=== PATIENT | male | born 1930 | race Caucasian/White ===

== ENCOUNTER 2018-06-06 07:30 | Observation (INO) | payer OTHER ==
[~2018-06-06] VITALS: Ht 170.2 cm; Wt 82.3 kg
[2018-06-06] VITALS (12 sets, daily range): BP systolic 116–145; BP diastolic 60–78
--- NOTE | ~2018-06-06 | H ---
[address] [address] HISTORY AND PHYSICAL Name: NATIVIDAD SCHUMACHER Room: [address] Jos Carrillo#: [id number] Admission: 06/06/18 Attend Phys: Dennis Soto MD Discharge: 06/07/18 Date of : 31 Report #: [id number] THIS REPORT FOR: //name// Please refer to the History and Physical performed in the physician's office. By: [id number] Records Staff MIKE /STELLA
[~2018-06-06 07:30] MED LIST: AREDS PO; ASPIR 8181 MG PO; ATORVASTATIN CA40 MG PO; CALCIUM 600 +1 EAC1 PO; COZAAR100 MG PO; FISH OIL 1,001000 M2 PO; KLOR-CON 1010 MEQ PO; LASIX 20 MG TAB20 MG PO; NITROGLYCERIN0.4 MG SUBLING; VITAMIN B-12500 MCG PO
[2018-06-06 08:12] LABS: HEMATOCRIT 51.5 % (42.0-52.0); HEMOGLOBIN 17.4 gm/dL (14.0-18.0); MCHC 33.8 g/dL (28.0-37.0); MCV 91.8 fL (80.0-100.0); MPV 7.8 fl. (7.2-11.1); RBC 5.62 mil/uL (4.50-6.00); RDW-CV 13.8 % (10.5-14.5); WBC 9.4 thou/uL (4.0-11.0)
[2018-06-06 08:19] LABS: ANION GAP 6 mmol/L (7-16); BUN 15 mg/dL (7-18); CALCIUM 9.1 mg/dL (8.5-10.1); CHLORIDE 102 mmol/L (98-107); CO2 28 mmol/L (21-32); CREATININE 1.2 mg/dL (0.6-1.3); GLUCOSE 108 mg/dL (70-99); SODIUM 136 mmol/L (136-145)
[2018-06-06 08:21] LABS: INR 1.1
[2018-06-06 08:23] LABS: ALKALINE PHOSPHATASE 69 U/L (46-116); CHOLESTEROL 125 mg/dL (<200); HDL CHOLESTEROL 62 mg/dL (>40); LDL CHOLESTEROL 45 mg/dL (<100); SERUM ASSESSMENT Clear; SGOT 26 U/L (15-37); SGPT 20 U/L (30-65); TOTAL BILIRUBIN 1.5 mg/dL (<0.1-1.0); TOTAL PROTEIN 7.2 g/dL (6.4-8.2); TRIGLYCERIDE 91 mg/dL (<150); VLDL 18 mg/dL (<40)
--- NOTE | 2018-06-06 13:04 | EKG ---
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: : 1930 Requested By: Dennis Soto Order Number: [id number] Reading MD: Dennis Soto Measurements Intervals [place] Rate: 58 P: 43 NH: 258 QRS: -21 QRSD: 96 T: -4 QT: 442 QTc: 435 Interpretive Statements Sinus rhythm Prolonged [place] interval Borderline left axis deviation Borderline T abnormalities, inferior leads No previous ECG available for comparison Electronically Signed On 06-06-2018 13:04:14 CDT by Dennis Soto [email or web address] <ELECTRONICALLY SIGNED> By: Dennis Soto MD, [facility] 06/06/18 1304 1230 1230 Dennis Soto MD, [facility] /EPI
--- NOTE | 2018-06-06 14:11 | CARD ---
[address] [address] CARDIAC CATH REPORT Name: NATIVIDAD SCHUMACHER Room: [address] Jos Carrillo#: [id number] Admission: 06/06/18 Attend Phys: Dennis Soto MD Discharge: Date of : 31 Report #: [id number] THIS REPORT FOR: //name// APPROVED REPORT Study performed: 06/06/2018 07:56:49 Patient Details Patient Status: Out-Patient Room #: The patient is a 87 year-old male Event Personnel Dennis Soto Director Software Development, Grace Neri RN Extruder Operator Multiple, Susie Sheldon Monitor, Cristo Wyatt (R) Scrub, Olinda Nails RTR Scrub, Greg Beck Inbound Telemarketer Procedures Performed Art Access - R radial artery , Left Heart CatheterizationArt Access - R femoral artery* , Selective Right and Left Coronary AngiographyLeft Heart Cath w/LT VGram [id number] [facility] GRICEL Place w/wo Plasty Single LAD 116819 Indication Dyspnea, Positive stress test Risk Factors Hypercholesterolemia, Hypertension Admission/Lab Medications/Medications given during procedure Aspirin, Platelet Aff. Inhib., Angiomax bolus and infusion Procedure Narrative The patient was brought electively to the Cardiac Catheterization Laboratory and was prepped and draped in a sterile manner. The right wrist was infiltrated with 2% Lidocaine subcutaneous anesthesia. A Slender Glidesheath sheath was inserted into the . Coronary angiography was performed using coronary diagnostic catheters. The right coronary system was accessed and visualized with a JL4 5mu8XFL 5fr catheter. The left coronary system was accessed and visualized with a JL4 6fr catheter. The left ventricle was accessed and visualized with a DCR: [place] 4.0 5frPC: Angled Pig 5fr catheter. Left ventricular/Aortic Valve gradient assessed via catheter pullback. Left ventriculogram was performed in [place] projection. Pre-demployment femoral angiogram was performed . Closure [place] [address] CARDIAC CATH REPORT Name: NATIVIDAD SCHUMACHER Room: [address]#: [id number] Admission: 06/06/18 Attend Phys: Dennis Soto MD Discharge: Date of : 31 Report #: [id number] 6 Fr Angioseal STS 6Fr. The patient tolerated the procedure well and there were no complications associated with the procedure. Intraoperative Conscious Sedation Sedation start time: 09:40 Case end Time: 11:20 Fentanyl 50 mcg Versed 2 mg Fluoro Time: 27.7 minutes Dose: DAP 027146 cGycm2 3701 mGy Contrast Type and Amount: Omnipaque 280 ml Diagnostic Cath Left Main 0 Percent narrowing LAD 90% tortuous proximal LAD stenosis with 80% mid vessel stenosis Circumflex Nondominant vessel with 90% mid vessel stenosis Right Coronary Large dominant vessel with 40% proximal mid and distal narrowings Left Ventriculography The left ventricle is normal in size with contractility. The left ventricular ejection fraction is estimated to be 55 percent. Left ventricular wall motion abnormalities are present. There is no mitral insufficiency. Mild anterior hypokinesis is noted IVUS Findings NC Trek RX 2.75 X 12 Hemodynamics The aortic pressure is 99/53 mmHg with a mean of mmHg. The left ventricular pressure is 115/2 mmHg with a mean of mmHg. The left ventricular end diastolic pressure is 7 mmHg. There was no gradient across the aortic valve upon pullback. PCI Technique Lesion Percutaneous coronary intervention was performed on the proximal left anterior descending artery segment. The lesion stenosis prior to intervention was 90% with CHANTEL 3 flow. A 6FR XB 3.5 100CM Guide Catheter was used to engage the LCA ostium. A IG: ProwaterFlex 180CM Interventional Guidewire was used to cross the lesion. BALLOON DILATION A Balloon catheter Trek RX 2.5 X 12 was inserted and inflated up to 16.00atm for 10seconds. [place] [address] CARDIAC CATH REPORT Name: NATIVIDAD SCHUMACHER Room: [address] M.RMadhav#: [id number] Admission: 06/06/18 Attend Phys: Dennis Soto MD Discharge: Date of : 31 Report #: [id number] STENT DEPLOYMENT A drug-eluting stent Xience Alpine RX 2.5X23 was inserted and inflated up to 12.00atm for 9seconds. Additional Inflation: 12.00atm for 9seconds. POST STENT DEPLOYMENT BALLOON DILATION A Balloon catheter NC Trek RX 2.75X15 was inserted and inflated up to 15.00atm for 9seconds. Additional Inflation: 14.00atm for 8seconds. Final angiography reveals 10 % stenosis with CHANTEL 3 flow. COMMENTS Marked proximal tortuosity of the LAD BALLOON DILATION A Balloon catheter NC Trek RX 2.75 X 12 was inserted and inflated up to jillian for seconds. PCI Technique Lesion 2 Percutaneous Coronary Intervention was performed on the mid left anterior descending artery segment. The lesion stenosis prior to intervention was 80% with CHANTEL 3 flow. A 6FR XB 3.5 100CM Guide Catheter was used to engage the ostium. A IG: ProwaterFlex 180CM Interventional Guidewire was used to cross the lesion. Balloon Dilation A Balloon catheter Trek RX 2.5 X 12 was inserted and inflated up to 10.00atm for 8seconds. Stent Deployment A drug-eluting stent Xience Alpine RX 2.5X15 was inserted and inflated up to 10.00atm for 7seconds. Additional Inflation: 11.00atm for 8seconds. Final angiography reveals 0 % stenosis with CHANTEL 3 flow. PCI Technique Lesion Percutaneous coronary intervention was performed on the mid left anterior descending artery segment. BALLOON DILATION A Balloon catheter NC Trek RX 2.75 X 12 was inserted and inflated up to 12atm for 5seconds. Additional Inflation: 15atm for 8seconds. [address] [address] CARDIAC CATH REPORT Name: NATIVIDAD SCHUMACHER Room: [address] Jos M.R.#: [id number] Admission: 06/06/18 Attend Phys: Dennis Soto MD Discharge: Date of : 31 Report #: [id number] Conclusion #1 significant coronary artery disease characterized by the following: A 90% tortuous proximal LAD stenosis with 80 percent mid vessel stenosis B nondominant circumflex with 90% mid vessel narrowing C large dominant right coronary artery with 40% proximal mid and distal narrowings #2 low normal global left ventricular systolic function, estimated ejection fraction of 55% with mild anterior hypokinesis #3 normal left-sided hemodynamics study #4 successful percutaneous coronary intervention with deployment of sequential drug-eluting stents at the sites of 90% tortuous proximal LAD stenosis and 80% mid LAD stenosis with 10 and 0% residual narrowings and CHANTEL-3 flow to the distal vessel. Recommendations Cardiac Risk Reduction Program Aggressive Medical Therapy Medications Administered Aspirin (any) Ticagrelor Diagnostic Cath Approved by: Dennis Soto MD Date/Time: 06/06/2018 14:10:16 <ELECTRONICALLY SIGNED> By: Greg Beck MD, [facility] 06/06/18 1411 1411 1411Jotim Beck MD, FACC /INF
--- NOTE | 2018-06-06 15:22 | NUR ---
PT ADMITTED TO ROOM 201 AROUND 1445 S/P CARDIAC CATH. PT WAS ACCESSED THROUGH RT WRIST AND RT GROIN SITE. BOTH SITES ARE C/D/I, NO EVIDENCE OF HEMATOMA. LIMB ALERT TO RUE. PT REMAINS ON BEDREST WITH INSTRUCTED IMMOBILIZATION TO RLE. PT COMPLIANT WITH PLAN OF CARE. IVF INFUSING WITHOUT DIFFICULTY. DAUGHTER AT BEDSIDE. NO OTHER CONCERNS AT THIS TIME. CLWR. WCTM.
[2018-06-07] VITALS: BP 118/52
--- NOTE | 2018-06-07 03:59 | NUR ---
PATIENT RESTED IN BED, NO ACUTE CHANGES. PATIENT DID NOT SHOW SIGNS OF BLEEDING OR DISTRESSS. FALL PRECAUTIONS IN PLACE, BED ALARM ON, CALL LIGHT WITH IN REACH, HOURLY ROUNDING OBSERVED.
[2018-06-07 04:00] VITALS: BP 145/72
[2018-06-07 05:11] LABS: HEMATOCRIT 44.9 % (42.0-52.0); MCH 30.8 pg (26.0-34.0); MCHC 33.7 g/dL (28.0-37.0); MCV 91.2 fL (80.0-100.0); MPV 7.9 fl. (7.2-11.1); RBC 4.92 mil/uL (4.50-6.00); RDW-CV 13.8 % (10.5-14.5); WBC 9.6 thou/uL (4.0-11.0)
[2018-06-07 05:22] LABS: HEMOGLOBIN 15.1 gm/dL (14.0-18.0)
[2018-06-07 05:37] LABS: CALCIUM 8.3 mg/dL (8.5-10.1); POTASSIUM 4.2 mmol/L (3.5-5.1); TOTAL BILIRUBIN 1.6 mg/dL (<0.1-1.0); TOTAL PROTEIN 5.3 g/dL (6.4-8.2); TROPONIN-I LEVEL 0.38 ng/mL (<0.06)
[2018-06-07 07:54] VITALS: BP 140/70
[2018-06-07 08:59] VITALS: BP 140/70
[2018-06-07] MEDS ORDERED: BRILINTA90 MG PO (09:59)
--- NOTE | 2018-06-07 10:55 | NUR ---
ASSUMED CARE OF PT AT 0715. PT REMAINS A&O CALM AND COOPERATIVE. PT VSS ON ROOM AIR AND TRACING SR ON THE MONITOR. PT VERBALIZED UNDERSTANDING OF DC INSTRUVTIONS THAT INCLUDED BUT NOT LIMITED TO, MEDICATION MANAGEMENT, POST CATH ACTIVITY RESTRICTIONS, DIETARY MODIFICATIONS. IV AND CHILD NURSE REMOVED PRIOR TO DISCHARGE. PT TOOK ALL PERSONAL BELONGINGS AND PRESCRIPTIONS AT TIME OF DISCHARGE.
--- NOTE | 2018-06-07 17:23 | EKG ---
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: : 1930 Requested By: Greg Beck Order Number: [id number] Elisabet MD: Greg Beck Measurements Intervals [place] Rate: 65 P: 43 MI: 217 QRS: -5 QRSD: 94 T: 41 QT: 440 QTc: 458 Interpretive Statements Sinus rhythm Borderline prolonged [place] interval Borderline low voltage, extremity leads Compared to ECG 06/06/2018 12:30:46 T-wave abnormality no longer present Electronically Signed On 06-07-2018 17:22:53 CDT by Greg Beck [email or web address] <ELECTRONICALLY SIGNED> By: Greg Beck MD, [facility] 06/07/18 1722 0846 0846 Greg Beck MD, [facility] /EPI
--- NOTE | 2018-06-24 12:10 | D ---
[address] [address] DISCHARGE SUMMARY Name: NATIVIDAD SCHUMACHER Room: [address] Jos Carrillo#: [id number] Admission: 06/06/18 Attend Phys: Dennis Soto MD Discharge: 06/07/18 Date of : 31 Report #: [id number] THIS REPORT FOR: //name// CC: Dennis Jiménez DATE OF SERVICE: 06/07/2018 FINAL DIAGNOSES: 1. Unstable angina. 2. Status post outpatient cardiac catheterization demonstrating a high grade 90% left anterior descending stenosis, which was successfully treated with 2 drug-eluting stents in the proximal and mid portions of his left anterior descending vessel. 3. Residual 80% circumflex stenosis, which will be treated at a later date, secondary to increased dye necessary for his left anterior descending coronary intervention. 4. Low normal left ejection fraction. 5. Treated hyperlipidemia. 6. Hypertension. 7. Ejection fraction 55%. HOSPITAL SUMMARY: The patient had been having outpatient shortness of breath, which we tried to manage medically but he continued to have symptoms, so we brought him in for diagnostic cardiac catheterization. He has a remote history of PCI to his circumflex and right coronary arteries. The right coronary artery stented portion looks good with only minimal disease. There was a very high-grade stenosis in the proximal and mid LAD, which was in the 90% range involved 2 large diagonals, both of which were spared for his coronary intervention. He had anterior hypokinesis on his LV gram. His lipids were surveyed and his LDL was in the 50 range, so we left his atorvastatin dose unchanged. He will be discharged on aspirin and Brilinta and follow up in approximately 1 month for PCI for his 90% nondominant circumflex stenosis. Discharge creatinine is 1.0. Discharge troponin is 0.38. Discharge hemoglobin is 15.1. DISCHARGE MEDICATIONS: Aspirin, Brilinta 90 mg p.o. b.i.d., losartan 100 mg daily, atorvastatin 40 mg daily and furosemide 20 mg p.r.n. with 10 [place] [address] DISCHARGE SUMMARY Name: NATIVIDAD SCHUMACHER Room: [address]#: [id number] Admission: 06/06/18 Attend Phys: Dennis Soto MD Discharge: 06/07/18 Date of : 31 Report #: [id number] FOLLOWUP: He will follow up with nurse practitioner in 4 weeks. <ELECTRONICALLY SIGNED> By: Dennis Soto MD, [facility] 06/24/18 1210 0852 0940Dennis Soto MD, FACC /nt
== END 2018-06-07 11:50 | disposition home or self-care (01) ==
LOC: M.CL 07:30 → M.TBA-CV 11:38 → M.2W 14:43
PROVIDERS: Internal Medicine; ADMIT Internal Medicine Cardiovascular Disease
DX: I25.118 Atherosclerotic heart disease of native coronary artery with other forms of angina pectoris (principal); I11.0 Hypertensive heart disease with heart failure; I50.32 Chronic diastolic (congestive) heart failure; E78.5 Hyperlipidemia, unspecified; I50.1 Left ventricular failure, unspecified; E78.00 Pure hypercholesterolemia, unspecified; Z82.49 Family history of ischemic heart disease and other diseases of the circulatory system

== ENCOUNTER 2018-07-03 07:42 | Observation (INO) | payer OTHER ==
[2018-07-03] VITALS (10 sets, daily range): BP systolic 102–138; BP diastolic 59–78
[~2018-07-03] VITALS: Ht 170.2 cm; Wt 82.6 kg
--- NOTE | ~2018-07-03 | H ---
[address] [address] HISTORY AND PHYSICAL Name: NATIVIDAD SCHUMACHER Room: [address] Jos Carrillo#: [id number] Admission: 07/03/18 Attend Phys: Greg Beck MD, Discharge: 07/04/18 Date of : 31 Report #: [id number] THIS REPORT FOR: //name// Please refer to the History and Physical performed in the physician's office. By: [id number] Records Staff MIKE /STELLA
[~2018-07-03 07:42] MED LIST changes: +BRILINTA90 MG PO
[2018-07-03 08:28] LABS: HEMATOCRIT 50.8 % (42.0-52.0); HEMOGLOBIN 17.1 gm/dL (14.0-18.0); MCH 30.9 pg (26.0-34.0); MCHC 33.7 g/dL (28.0-37.0); MCV 91.7 fL (80.0-100.0); MPV 7.7 fl. (7.2-11.1); RBC 5.54 mil/uL (4.50-6.00); RDW-CV 13.7 % (10.5-14.5); WBC 9.8 thou/uL (4.0-11.0)
[2018-07-03 08:38] LABS: CALCIUM 9.6 mg/dL (8.5-10.1); CREATININE 1.3 mg/dL (0.6-1.3); POTASSIUM 3.8 mmol/L (3.5-5.1)
[2018-07-03 08:39] LABS: APTT 23.9 Seconds (25.0-31.3); PROTIME 10.1 Seconds (9.20-11.50)
[2018-07-03 08:42] LABS: ALBUMIN 4.1 g/dL (3.4-5.0); TOTAL BILIRUBIN 1.3 mg/dL (<0.1-1.0); TOTAL PROTEIN 7.7 g/dL (6.4-8.2)
[2018-07-04] VITALS: BP 139/73
[2018-07-04 04:00] VITALS: BP 149/80
[2018-07-04 05:44] LABS: HEMATOCRIT 45.1 % (42.0-52.0); HEMOGLOBIN 15.2 gm/dL (14.0-18.0); MCH 30.8 pg (26.0-34.0); MCHC 33.7 g/dL (28.0-37.0); MCV 91.2 fL (80.0-100.0); MPV 7.7 fl. (7.2-11.1); RBC 4.95 mil/uL (4.50-6.00); RDW-CV 13.8 % (10.5-14.5); WBC 9.5 thou/uL (4.0-11.0)
[2018-07-04 06:02] LABS: ALBUMIN 3.3 g/dL (3.4-5.0); ALKALINE PHOSPHATASE 65 U/L (46-116); ANION GAP 9 mmol/L (7-16); BUN 15 mg/dL (7-18); CALCIUM 8.6 mg/dL (8.5-10.1); CHLORIDE 107 mmol/L (98-107); CHOLESTEROL 106 mg/dL (<200); CO2 25 mmol/L (21-32); GLUCOSE 75 mg/dL (70-99); HDL CHOLESTEROL 52 mg/dL (>40); LDL CHOLESTEROL 35 mg/dL (<100); POTASSIUM 4.1 mmol/L (3.5-5.1); SGOT 21 U/L (15-37); SGPT 20 U/L (30-65); SODIUM 141 mmol/L (136-145); TOTAL BILIRUBIN 1.4 mg/dL (<0.1-1.0); TOTAL PROTEIN 5.8 g/dL (6.4-8.2); TRIGLYCERIDE 98 mg/dL (<150); VLDL 20 mg/dL (<40)
[2018-07-04 06:04] LABS: SERUM ASSESSMENT Clear
[2018-07-04 08:35] VITALS: BP 102/66
[2018-07-04 11:31] VITALS: BP 102/66
--- NOTE | 2018-07-04 17:00 | EKG ---
[place] [address] ELECTROCARDIOGRAM REPORT Name: NATIVIDAD SCHUMACHER Room: [address] M.R.#: [id number] Admission: 07/03/18 Attend Phys: Greg Beck MD, Discharge: 07/04/18 Date of : 31 Report #: [id number] THIS REPORT FOR: //name// [facility] Test Date: 2018-07-03 Test Time: 08:37:45 Pat Name: NATIVIDAD SCHUMACHER Department: Room: [facility] Gender: M Immunology Teacher: XAVIER : 1930 Requested By: Greg Beck Order Number: [id number] Reading MD: Greg Beck Measurements Intervals [place] Rate: 60 P: 57 CA: 246 QRS: -18 QRSD: 95 T: 36 QT: 404 QTc: 404 Interpretive Statements Sinus rhythm Prolonged [place] interval Borderline left axis deviation Abnormal R-wave progression, early transition Compared to ECG 06/07/2018 08:46:15 No significant changes Electronically Signed On 07-04-2018 16:59:50 CDT by Greg Beck [email or web address] <ELECTRONICALLY SIGNED> By: Greg Beck MD, FACC 07/04/18 1659 0837 0837 Greg Beck MD, [facility] /EPI
--- NOTE | 2018-07-04 17:04 | EKG ---
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
--- NOTE | 2018-07-04 17:10 | EKG ---
[place] [address] ELECTROCARDIOGRAM REPORT Name: NATIVIDAD SCHUMACHER Room: [address] M.R.#: [id number] Admission: 07/03/18 Attend Phys: Greg Beck MD, Discharge: 07/04/18 Date of : 31 Report #: [id number] THIS REPORT FOR: //name// [facility] Test Date: 2018-07-04 Test Time: 04:33:38 Pat Name: NATIVIDAD SCHUMACHER Department: Room: [facility] Gender: M Dependency Director: PADMA : 1930 Requested By: Greg Beck Order Number: [id number] Elisabet MD: Greg Beck Measurements Intervals [place] Rate: 58 P: 55 FL: 260 QRS: -12 QRSD: 103 T: 16 QT: 426 QTc: 419 Interpretive Statements Sinus rhythm Prolonged [place] interval Borderline low voltage, extremity leads Compared to ECG 06/07/2018 08:46:15 No significant changes Electronically Signed On 07-04-2018 17:09:50 CDT by Greg Beck [email or web address] <ELECTRONICALLY SIGNED> By: Greg Beck MD, [facility] 07/04/18 1709 0433 0433 Greg Beck MD, [facility] /EPI
--- NOTE | 2018-07-05 10:08 | CARD ---
[address] [address] CARDIAC CATH REPORT Name: NATIVIDAD SCHUMACHER Room: [address] Jos Carrillo#: [id number] Admission: 07/03/18 Attend Phys: Greg Beck MD, Discharge: 07/04/18 Date of : 31 Report #: [id number] THIS REPORT FOR: //name// APPROVED REPORT Study performed: 07/03/2018 08:58:37 Patient Details Patient Status: Out-Patient Room #: The patient is a 88 year-old male Event Personnel Greg Beck Verifying Machine Operator, Franchesca Ghosh RN RN, Susie Sheldon Monitor, Cristo Wyatt (R) Scrub Procedures Performed Art Access - R femoral artery* , Selective Right and Left Coronary AngiographyLeft Heart Cath w/or w/o Coronaries [id number] [facility] [address] [facility] w/wo Plasty Single CIRC 742958 Indication Positive stress test, Chest pain Risk Factors Hypercholesterolemia, Hypertension Previous Procedures/Diagnoses Previous PCI Admission/Lab Medications/Medications given during procedure Aspirin, Platelet Aff. Inhib., Angiomax bolus and infusion Procedure Narrative The patient was brought electively to the Cardiac Catheterization Laboratory and was prepped and draped in a sterile manner. The right femoral was infiltrated with 2% Lidocaine subcutaneous anesthesia. A [place] 6 FR sheath was inserted into the right femoral artery. Coronary angiography was performed using coronary diagnostic catheters. The right coronary system was accessed and visualized with a 6fr JR 4 catheter. The left coronary system was accessed and visualized with a 6fr JL 4 catheter. The left ventricle was accessed and visualized with a 6fr Pigtail catheter. Left ventricular/Aortic Valve gradient assessed via catheter pullback. Pre-demployment femoral angiogram was performed . Closure device [place] [address] CARDIAC CATH REPORT Name: NATIVIDAD SCHUMACHER Room: [address] Gerardo#: [id number] Admission: 07/03/18 Attend Phys: Greg Beck MD, Discharge: 07/04/18 Date of : 31 Report #: [id number] 6 Fr Angioseal STS 6Fr. The patient tolerated the procedure well and there were no complications associated with the procedure. There was no hematoma. Intraoperative Conscious Sedation Sedation start time: 09:53 Case end Time: 10:36 Fentanyl 50 mcg Versed 1 mg Fluoro Time: 9.4 minutes Dose: DAP 171195 cGycm2 1629.46 mGy Contrast Type and Amount: Visipaque 330 ml Diagnostic Cath Left Main 10% distal narrowing LAD Widely patent proximal and mid LAD stents with 10% narrowing of the proximal and midportion of the vessel Circumflex Nondominant circumflex with 90% mid vessel stenosis, partially within a previously deployed stent Right Coronary 40% proximal mid and distal narrowings of this dominant vessel by recent cineangiogram Left Ventriculography Left Ventriculography was not performed. IVUS Intravascular Ultrasound was performed on the mid circumflex artery segment vessel. A Guide Catheter was used to engage the 6FR XB 3.5 100CM ostium. A LCA Interventional Guidewire was used. A IG: ProwaterFlex 180CM was used. IVUS Findings NC Trek RX 2.5 X 12 Hemodynamics The aortic pressure is 127/60 mmHg with a mean of mmHg. The left ventricular pressure is 130/21 mmHg with a mean of mmHg. The left ventricular end diastolic pressure is 11 mmHg. There was no gradient across the aortic valve upon pullback. PCI Technique Lesion Anticoagulation was achieved with Angiomax. Percutaneous coronary intervention was performed on the mid circumflex artery segment. The lesion stenosis prior to intervention was 90% with CHANTEL 3 flow. A 6FR XB 3.5 100CM Guide Catheter was used to engage the LCA ostium. A IG: ProwaterFlex 180CM Interventional Guidewire was used [place] [address] CARDIAC CATH REPORT Name: NATIVIDAD SCHUMACHER Room: [address] YaryRMadhav#: [id number] Admission: 07/03/18 Attend Phys: Greg Beck MD, Discharge: 07/04/18 Date of : 31 Report #: [id number] lesion. BALLOON DILATION A Balloon catheter Trek RX 2.25 X 12 was inserted and inflated up to 14.00atm for 13seconds. Additional Inflation: 16.00atm for 8seconds. STENT DEPLOYMENT A drug-eluting stent Xience Alpine RX 2.5X18 was inserted and inflated up to 12atm for 15seconds. Final angiography reveals 10 % stenosis with CHANTEL flow. PCI Technique Lesion Percutaneous coronary intervention was performed on the mid circumflex artery segment. A 6FR XB 3.5 100CM Guide Catheter was used to engage the LCA ostium. A IG: ProwaterFlex 180CM Interventional Guidewire was used to cross the lesion. BALLOON DILATION A Balloon catheter NC Trek RX 2.5 X 12 was inserted and inflated up to 16.00atm for 9seconds. Additional Inflation: 16.00atm for 12seconds. Additional Inflation: 18.00atm for 9seconds. STENT DEPLOYMENT A drug-eluting stent Xience Alpine RX 2.5X18 was inserted and inflated up to 10.00atm for 6seconds. Additional Inflation: 12.00atm for 11seconds. POST STENT DEPLOYMENT BALLOON DILATION A Balloon catheter NC Trek RX 2.5 X 8 was inserted and inflated up to 13.00atm for 11seconds. Additional Inflation: 15.00atm for 10seconds. Conclusion #1 significant coronary artery disease characterized by the following: A widely patent proximal and mid LAD stents with 10% proximal mid LAD narrowing with 30% first and second diagonal narrowing B nondominant circumflex with 90% mid vessel stenosis partially within the previously deployed stent C dominant right coronary artery with 40% proximal mid [place] [address] CARDIAC CATH REPORT Name: NATIVIDAD SCHUMACHER Room: [address] Jos Carrillo#: [id number] Admission: 07/03/18 Attend Phys: Greg Beck MD, Discharge: 07/04/18 Date of : 31 Report #: [id number] #2 normal left-sided hemodynamics study #3 successful percutaneous coronary intervention with deployment of a drug-eluting stent at the site of 90% midcircumflex stenosis with 10% residual narrowing and CHANTEL-3 flow the distal vessel Recommendations Cardiac Risk Reduction Program Aggressive Medical Therapy Medications Administered Ticagrelor Diagnostic Cath Approved by: Greg Beck MD Date/Time: 07/05/2018 10:06:27 <ELECTRONICALLY SIGNED> By: Greg Beck MD, FACC 07/05/18 1007 1007 1007Jotim Beck MD, FACC /INF
--- NOTE | 2018-07-05 16:05 | D ---
[address] [address] DISCHARGE SUMMARY Name: MICHAELMACNATIVIDAD G Room: [address] Jos MKenyon#: [id number] Admission: 07/03/18 Attend Phys: Greg Beck MD, Discharge: 07/04/18 Date of : 32 Report #: [id number] THIS REPORT FOR: //name// CC: Greg Soto MD [facility] DATE OF SERVICE: 07/04/2018 FINAL DISCHARGE DIAGNOSES: 1. Abnormal nuclear stress test. 2. Chest pain. 3. Coronary artery disease. 4. Hypertension. 5. Status post prior percutaneous coronary intervention of the LAD and percutaneous coronary intervention of the circumflex on 07/03/2018. PROCEDURES: 07/03/2018 -- left heart catheterization, selective coronary arteriography, percutaneous coronary intervention with deployment of drug-eluting stent at site of 90% mid circumflex stenosis. HOSPITAL COURSE: The patient is a very pleasant and active 88-year-old male with complex coronary artery disease, approximately one month status post stenting of proximal-mid LAD after an abnormal stress test. He had a 90% calcified mid circumflex noted at the time of initial catheterization, which was not approached in the initial setting. He was readmitted in the context of anatomy and some persistent chest discomfort. He has underlying hypertension and hypercholesterolemia. On 07/03/2018, cardiac catheterization revealed normal left-sided hemodynamic study with widely patent LAD stents. There was 90% heavily calcified mid circumflex stenosis. I deployed one drug-eluting stent in the mid circumflex with 10% residual narrowing and CHANTEL 3 flow of the distal vessel. The patient did well post-procedurally. LABORATORY DATA: On 07/04/2018 revealed a sodium of 141, potassium of 4.1, BUN 15, creatinine 1.0. Hemoglobin 15.2; white blood cell count 9500 with 220,000 platelets. Cholesterol 106, HDL 52, LDL 35. Troponin 0.10. The patient ambulated in the hallways without difficulty and there was good hemostasis at the right femoral site of catheterization. He was discharged to home on 07/04/2018 on the following medications: Aspirin 81 mg daily, atorvastatin 40 mg daily, fish oil 1000 mg daily, furosemide 40 mg thrice weekly, losartan 100 mg daily, potassium chloride 20 mEq 3 times [place] [address] DISCHARGE SUMMARY Name: NATIVIDAD SCHUMACHER [address]#: [id number] Admission: 07/03/18 Attend Phys: Greg Beck MD, Discharge: 07/04/18 Date of : 32 Report #: [id number] accompanying Lasix dosages, Brilinta 90 mg b.i.d. He is scheduled to see the nurse practitioner in 7-[address] Soto in 4-6 weeks. Thus, the patient is discharged to home in stable condition on 07/04/2018 with followup as iterated above. <ELECTRONICALLY SIGNED> By: Greg Beck MD, FACC 07/05/18 1605 [id number] Beck MD, FACC /nt
== END 2018-07-04 12:20 | disposition home or self-care (01) ==
LOC: M.CL 07:42 → M.TBA-CV 10:53 → M.2W 14:55
PROVIDERS: ADMIT Internal Medicine
DX: I25.118 Atherosclerotic heart disease of native coronary artery with other forms of angina pectoris (principal); I11.0 Hypertensive heart disease with heart failure; I50.32 Chronic diastolic (congestive) heart failure; E78.00 Pure hypercholesterolemia, unspecified; R94.39 Abnormal result of other cardiovascular function study; Z95.5 Presence of coronary angioplasty implant and graft; Z98.890 Other specified postprocedural states

== ENCOUNTER → 2019-03-29 | Outpatient (CLI) | payer OTHER ==
[2019-03-29 11:11] LABS: CALCIUM 9.5 mg/dL (8.5-10.1); CREATININE 1.1 mg/dL (0.6-1.3); POTASSIUM 4.3 mmol/L (3.5-5.1)
== END ==
LOC: M.LAB 10:43
PROVIDERS: Internal Medicine Cardiovascular Disease
DX: I11.0 Hypertensive heart disease with heart failure (principal); I50.32 Chronic diastolic (congestive) heart failure